=== PATIENT | female | born 1990 | race Caucasian/White ===

== ENCOUNTER 2019-01-19 23:56 | Emergency (ER) | payer OTHER ==
[~2019-01-19] VITALS: Ht 162.6 cm; Wt 50.8 kg
[2019-01-20] MEDS ORDERED: CLONAZEPAM2 MG PO (00:27)
[2019-01-20] MEDS ORDERED: TRILEPTAL300 MG PO (00:28)
[2019-01-20] MEDS ORDERED: ABILIFY 5 MG TAB5 MG PO (00:29)
[2019-01-20 00:36] LABS: ABSOLUTE NEUTROPHILS 3.8 thou/uL (1.4-8.2); BASOPHILS 0.6 % (0.0-2.0); EOSINOPHILS 1.1 % (0.0-3.0); HEMATOCRIT 46.2 % (37.0-47.0); HEMOGLOBIN 15.7 gm/dL (12.0-15.0); LYMPHOCYTES 30.1 % (24.0-44.0); MCH 28.9 pg (26.0-34.0); MCHC 34.1 g/dL (28.0-37.0); MCV 84.9 fL (80.0-100.0); MONOCYTES 10.3 % (1.0-8.0); PLATELET COUNT 199 thou/uL (150-400); POLYS 57.9 % (36.0-66.0); RBC 5.44 mil/uL (4.20-5.00); RDW 14.3 % (10.5-14.5); WBC 6.5 thou/uL (4.0-11.0)
[2019-01-20 00:41] LABS: CREATININE 0.9 mg/dL (0.6-1.0); POTASSIUM 3.2 mmol/L (3.5-5.1)
[2019-01-20 00:47] LABS: ALBUMIN 3.5 g/dL (3.4-5.0); TOTAL BILIRUBIN 0.3 mg/dL (<0.1-1.0); TOTAL PROTEIN 6.1 g/dL (6.4-8.2)
[2019-01-20 01:00] LABS: AMP/METHAMP POSITIVE (Negative); BARBITURATES Negative (Negative); BENZODIAZEPINES POSITIVE (Negative); COCAINE POSITIVE (Negative); METHADONE Negative (Negative); OPIATES Negative (Negative); PCP Negative (Negative)
[2019-01-20 01:01] LABS: URINE BILIRUBIN NEGATIVE (Negative); URINE BLOOD TRACE (Negative); URINE CLARITY SL CLOUDY; URINE COLOR YELLOW; URINE GLUCOSE-RANDOM* NEGATIVE (Negative); URINE KETONES NEGATIVE (Negative); URINE LEUKOCYTES-REFLEX NEGATIVE (Negative); URINE NITRITE-REFLEX NEGATIVE (Negative); URINE PROTEIN (DIPSTICK) TRACE (Negative); URINE UROBILINOGEN 0.2 E.U./dl (0.2-1.0)
[2019-01-20 03:03] VITALS: BP 106/66
--- NOTE | 2019-01-20 07:42 | EKG ---
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 : 1990 Requested By: Wendie Liang Order Number: [id number] MD: Dixon Burgess Measurements Intervals [place] Rate: 63 P: 40 CO: 139 QRS: 41 QRSD: 81 T: 70 QT: 437 QTc: 448 Interpretive Statements Sinus rhythm Atrial premature complex Poor R wave progression No previous ECG available for comparison Electronically Signed On 01-20-2019 7:42:39 CDT by Dixon Burgess [email or web address] ��������������������������������������������� <ELECTRONICALLY SIGNED> ���������������������������������������� By: Dixon Burgess MD, [facility] ��������������������������������������������� 01/20/19 0742 0010 0010 Dixon Burgess MD, FACC /EPI
== END 2019-01-20 03:07 | disposition home or self-care (01) ==
LOC: ER 23:56
PROVIDERS: Student in an Organized Health Care Education/Training Program
DX: I95.1 Orthostatic hypotension (principal); E87.6 Hypokalemia; R55 Syncope and collapse; F17.210 Nicotine dependence, cigarettes, uncomplicated

== ENCOUNTER 2019-12-10 19:39 | Emergency (ER) | payer OTHER ==
[~2019-12-10] VITALS: Ht 162.6 cm; Wt 47.2 kg
[~2019-12-10 19:39] MED LIST: ABILIFY 5 MG TAB5 MG PO; CLONAZEPAM2 MG PO; TRILEPTAL300 MG PO
[2019-12-10] MEDS ORDERED: TRAZODONE HCL100 MG PO (19:46)
[2019-12-10] MEDS ORDERED: KLONOPIN2 MG PO (19:46)
[2019-12-10 20:07] LABS: URINE BILIRUBIN NEGATIVE (Negative); URINE BLOOD NEGATIVE (Negative); URINE CLARITY CLEAR; URINE COLOR YELLOW; URINE GLUCOSE-RANDOM* NEGATIVE (Negative); URINE KETONES NEGATIVE (Negative); URINE NITRITE-REFLEX NEGATIVE (Negative); URINE PROTEIN (DIPSTICK) NEGATIVE (Negative); URINE UROBILINOGEN 0.2 E.U./dl (0.2-1.0)
[2019-12-10 20:10] LABS: URINE LEUKOCYTES-REFLEX 3+ (Negative)
[2019-12-10 20:18] LABS: URINE WBC-REFLEX 6-15 Few /HPF (0-5); YEAST-REFLEX Present (None Seen)
[2019-12-10 20:19] LABS: BACTERIA-REFLEX 1-9 Few /HPF (None Seen); CASTS None Seen /LPF (None Seen); CRYSTALS None Seen /LPF (None Seen); SQUAMOUS 0-3 Few /LPF (0-3); URINE RBC None Seen /HPF (0-2)
[2019-12-10] MEDS ORDERED: DIFLUCAN200 MG PO (21:52)
[2019-12-10 22:32] VITALS: BP 123/76
== END 2019-12-10 22:35 | disposition home or self-care (01) ==
LOC: ER 19:39
PROVIDERS: Physician Assistant
DX: Z32.02 Encounter for pregnancy test, result negative (principal); B37.9 Candidiasis, unspecified; N89.8 Other specified noninflammatory disorders of vagina; F17.210 Nicotine dependence, cigarettes, uncomplicated

== ENCOUNTER 2020-01-21 14:27 | Emergency (ER) | payer OTHER ==
[~2020-01-21] VITALS: Ht 160 cm; Wt 49.9 kg
[~2020-01-21 14:27] MED LIST changes: +DIFLUCAN200 MG PO; +KLONOPIN2 MG PO; +TRAZODONE HCL100 MG PO
[2020-01-21 14:47] VITALS: BP 112/68
[2020-01-21] MEDS ORDERED: ZOFRAN4 MG PO (15:06)
== END 2020-01-21 15:11 | disposition home or self-care (01) ==
LOC: ER 14:27
DX: B34.9 Viral infection, unspecified (principal); R11.2 Nausea with vomiting, unspecified; F17.210 Nicotine dependence, cigarettes, uncomplicated

== ENCOUNTER 2020-02-14 11:50 | Emergency (ER) | payer OTHER ==
[~2020-02-14] VITALS: Ht 162.6 cm; Wt 49.0 kg
[~2020-02-14 11:50] MED LIST changes: +ZOFRAN4 MG PO
[2020-02-14 12:14] LABS: ABSOLUTE NEUTROPHILS 3.1 thou/uL (1.4-8.2); BASOPHILS 0.6 % (0.0-2.0); EOSINOPHILS 0.8 % (0.0-3.0); HEMATOCRIT 44.1 % (37.0-47.0); HEMOGLOBIN 14.8 gm/dL (12.0-15.0); LYMPHOCYTES 28.2 % (24.0-44.0); MCH 29.2 pg (26.0-34.0); MCHC 33.6 g/dL (28.0-37.0); MONOCYTES 7.4 % (1.0-8.0); PLATELET COUNT 225 thou/uL (150-400); RBC 5.06 mil/uL (4.20-5.00); RDW 13.7 % (10.5-14.5); WBC 4.9 thou/uL (4.0-11.0)
[2020-02-14 12:17] LABS: CALCIUM 8.9 mg/dL (8.5-10.1); CREATININE 1.1 mg/dL (0.6-1.0); POTASSIUM 3.1 mmol/L (3.5-5.1)
[2020-02-14 12:23] LABS: MAGNESIUM 2.2 mg/dL (1.8-2.4); TOTAL BILIRUBIN 0.4 mg/dL (<0.1-1.0); TOTAL PROTEIN 7.3 g/dL (6.4-8.2)
[2020-02-14] MEDS ORDERED: POTASSIUM20 PO (13:24)
[2020-02-14] MEDS ORDERED: CLONAZEPAM 0.50.5 M1 PO (13:24)
[2020-02-14 13:37] VITALS: BP 97/59
== END 2020-02-14 13:44 | disposition home or self-care (01) ==
LOC: ER 11:50
PROVIDERS: Physician Assistant
DX: R56.9 Unspecified convulsions (principal); E87.6 Hypokalemia; F41.9 Anxiety disorder, unspecified; F17.210 Nicotine dependence, cigarettes, uncomplicated; Z79.899 Other long term (current) drug therapy

== ENCOUNTER 2020-02-16 10:57 | Emergency (ER) | payer OTHER ==
[~2020-02-16] VITALS: Ht 162.6 cm; Wt 49.0 kg
--- NOTE | ~2020-02-16 | EMS ---
[address] [address] EMS Patient Care Report Name: DALLAS HO Room #: REG TRISTIN Warner#: [id number] Admission: 02/16/20 Attend Phys: Discharge: Date of : [birth year] Report #: [id number] THIS REPORT FOR: //name// Report Transmitted: 02/16/2020 12:26 EMS Care Summary [place], [place]/[facility] Incident [id number] @ 02/16/2020 10:22 Incident Location [address] [place], [place] [id number] Patient DALLAS OH Female, 29 Years 1990 Patient Address [address] [place], [place] [id number] Patient History Other,Seizures, Patient Allergies No known allergies, Patient Medications Clonazepam, Trazodone, Chief Complaint REPEATED SEIZURES Disposition Transported No Lights/[place] Dispatch Reason Convulsions/Seizure Transported To [facility] Narrative REC'D CALL FOR SEIZURES. DISP ADVISED POTENTIAL JUWAN PT BASED ON POSSIBLE FEVER. ON ARRIVAL, MAN MET US OUTSIDE STATING PT HAD SEVER[place] [address] EMS Patient Care Report Name: DALLAS OH Room #: REG Timmy#: [id number] Admission: 02/16/20 Attend Phys: Discharge: Date of : [birth year] Report #: [id number] PAST 12 HOURS OR SO, WHICH IS MUCH MORE FREQUENT THAN USUAL. THE MAN STATED HE WOULD CARRY PT OUT TO US BECAUSE THE STAIRS TO APT WERE DIFFICULT TO NAVIGATE WITH THE COT. MALE CARRIED PT STATED, AND PLACED HER ON OUR COT AT THE TOP OF THE STAIRS. PT WAS LOADED INTO AMB QUICKLY, SEVERE WEATHER WAS APPROACHING. PT WAS WARM TO THE TOUCH, SURGICAL MASK PLACED ON PT. PT STATED THAT SHE HAD BEEN RECENTLY TESTED FOR COVID WITH NEGATIVE RESULTS. CREW DONNED PPE PER PROTOCOL PRIOR TO CONTACT. PT ASSESSMENT FOUND PT GCS 15, BUT WITH LITTLE TO NO RECOLLECTION OF SEIZURE ACTIVITY. 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 PT DENIES ANY SCRIPTS GIVEN FOR SEIZURE ACTIVITY. IV ESTABLISHED, SALINE LOCKED. PT REQUESTED TRANSPORT TO [facility]. PT WAS MONITORED CONTINUOUSLY DURING TRANSPORT, PT REMAINED STABLE. PT CARE PASSED TO [facility]. Initial Vitals @10:33P: 55,R: 16,BP: 93/52,Pain: 0/10,GCS: 15,Glucose: 107,SpO2: 98,Revised Trauma: 12, @10:37P: 70,R: 14,BP: 95/58,Pain: 0/10,GCS: 15,SpO2: 99,Revised Trauma: 12, Assessments @10:34MENTAL:No Abnormalities,SKIN:HEENT:Head/Face: No Abnormalities,Neck/Airway: No Abnormalities,LUNG SOUNDS:General: No Abnormalities,ABDOMEN:General: No Abnormalities,PELVIS//GI:EXTREMITIES:Capillary Refill: Left Upper: 3 Sec,Left Arm: No Abnormalities,Right Arm: No Abnormalities,Left Leg: No Abnormalities,Right Leg: No Abnormalities,PULSE:Radial: 2+ Normal,NEURO:No Abnormalities,@10:50MENTAL:No Abnormalities,SKIN:No Abnormalities,HEENT:Head/Face: No Abnormalities,Eyes: No Abnormalities,Neck/Airway: No Abnormalities,LUNG SOUNDS:General: No Abnormalities,ABDOMEN:General: No Abnormalities,PELVIS//GI:EXTREMITIES:Capillary Refill: Left Upper: 3 Sec,Left Arm: No Abnormalities,Right Arm: No Abnormalities,Left Leg: No Abnormalities,Right Leg: No Abnormalities,PULSE:Radial: 2+ Normal,NEURO:No Abnormalities, Impression Seizures Procedures @10:41Normal Saline (.9% NaCl) 10cc (20 ga) Site: Forearm-LeftResponse: UnchangedSucceeded@10:33ALS AssessmentResponse: UnchangedSucceeded@10:35StretcherResponse: Unchanged Timeline 10:19,Call Received 10:19,[place] [address] EMS Patient Care Report Name: DALLAS OH Room #: REG [facility].#: [id number] Admission: 02/16/20 Attend Phys: Discharge: Date of : [birth year] Report #: [id number] 10:22,Dispatched 10:24,En Route 10:27,On Scene 10:31,At Patient 10:33,BP: 93/52 M,PULSE: 55,RR: 16 R,SPO2: 98 Ox,ETCO2: ,B,PAIN: 0,GCS: 15, 10:33,ALS Assessment,Response: UnchangedSucceeded, 10:35,Stretcher,Response: Unchanged 10:37,BP: 95/58 M,PULSE: 70,RR: 14 R,SPO2: 99 Ox,ETCO2: ,BG: ,PAIN: 0,GCS: 15, 10:41,Normal Saline (.9% NaCl) 10cc 20 ga Site: Forearm-Left,Response: UnchangedSucceeded, 10:42,Depart Scene 10:50,At Destination 11:02,Call Closed Disclaimer v1.1 Copyright 2020 [employer] This EMS Care Summary contains data elements from the applicable legal record (which may be displayed differently). It is designed to provide pertinent information for the following purposes: continuity of care, clinical quality, and state data reporting. The complete legal record is available to ED staff and administrators of the receiving hospital in ES's Patient Tracker. All data is provided "as is."
[~2020-02-16 10:57] MED LIST changes: +CLONAZEPAM 0.50.5 M1 PO; +POTASSIUM20 PO
[2020-02-16 11:27] LABS: ABSOLUTE NEUTROPHILS 2.3 thou/uL (1.4-8.2); BASOPHILS 0.9 % (0.0-2.0); HEMATOCRIT 39.1 % (37.0-47.0); HEMOGLOBIN 13.6 gm/dL (12.0-15.0); LYMPHOCYTES 37.4 % (24.0-44.0); MCH 30.1 pg (26.0-34.0); MCHC 34.8 g/dL (28.0-37.0); MCV 86.4 fL (80.0-100.0); MONOCYTES 8.3 % (1.0-8.0); PLATELET COUNT 201 thou/uL (150-400); POLYS 51.4 % (36.0-66.0); RBC 4.53 mil/uL (4.20-5.00); RDW 13.3 % (10.5-14.5); WBC 4.5 thou/uL (4.0-11.0)
[2020-02-16 11:32] LABS: CREATININE 0.8 mg/dL (0.6-1.0)
[2020-02-16 11:38] LABS: ALBUMIN 3.2 g/dL (3.4-5.0); TOTAL BILIRUBIN 0.3 mg/dL (<0.1-1.0); TOTAL PROTEIN 6.1 g/dL (6.4-8.2)
[2020-02-16 11:53] LABS: URINE BILIRUBIN NEGATIVE (Negative); URINE BLOOD NEGATIVE (Negative); URINE CLARITY CLEAR; URINE COLOR YELLOW; URINE GLUCOSE-RANDOM* NEGATIVE (Negative); URINE KETONES NEGATIVE (Negative); URINE LEUKOCYTES-REFLEX NEGATIVE (Negative); URINE PROTEIN (DIPSTICK) NEGATIVE (Negative); URINE SPECIFIC GRAVITY >= 1.030 (1.005-1.035); URINE UROBILINOGEN 0.2 E.U./dl (0.2-1.0)
[2020-02-16 12:14] LABS: URINE NITRITE-REFLEX POSITIVE (Negative)
[2020-02-16 13:25] LABS: CASTS None Seen /LPF (None Seen); SQUAMOUS >10 Many /LPF (0-3); URINE RBC None Seen /HPF (0-2); URINE WBC-REFLEX 0-5 Rare /HPF (0-5)
[2020-02-16 13:26] LABS: CRYSTALS None Seen /LPF (None Seen)
[2020-02-16] MEDS ORDERED: EFFEXOR XR37.5 MG PO (13:39)
[2020-02-16] MEDS ORDERED: KEFLEX500 M1 PO (13:39)
[2020-02-16] MEDS ORDERED: KLONOPIN1 MG PO (13:39)
[2020-02-16 13:42] VITALS: BP 96/31
--- NOTE | 2020-02-17 07:58 | EKG ---
[facility] [place] [address] ELECTROCARDIOGRAM REPORT Name: DALLAS OH Room #: DEP [facility]#: [id number] Admission: 02/16/20 Attend Phys: Discharge: 02/16/20 Date of : [birth year] Report #: [id number] THIS REPORT FOR: cc: Elan Dudley MD, Bryan W. MD Lundgren, Craig H. MD [facility] ~ THIS REPORT FOR: //name// [facility] ED Test Date: 2020-02-16 Test Time: 11:05:24 Pat Name: DALLAS OH Department: Room: Gender: Veneer Department Manager: [facility] : 1990 Requested By: David Singh Order Number: [id number] MD: Dixon Burgess Measurements Intervals [place] Rate: 50 P: 27 WI: 149 QRS: 74 QRSD: 85 T: 76 QT: 455 QTc: 415 Interpretive Statements Sinus rhythm ST elev, probable normal early repol pattern No previous ECGs available for comparison Electronically Signed On 02-17-2020 7:56:58 CDT by Dixon Burgess [email or web address] <ELECTRONICALLY SIGNED> By: Dixon Burgess MD, FAC 02/17/20 0756 1105 04 Dixon Burgess MD, [facility] /EPI
[2020-02-17] MEDS ORDERED: KLONOPIN1 MG PO (19:22)
== END 2020-02-16 13:46 | disposition home or self-care (01) ==
LOC: ER 10:57
PROVIDERS: Emergency Medicine
DX: R25.1 Tremor, unspecified (principal); N39.0 Urinary tract infection, site not specified; G43.909 Migraine, unspecified, not intractable, without status migrainosus; M62.838 Other muscle spasm; M54.2 Cervicalgia; F31.9 Bipolar disorder, unspecified; F41.9 Anxiety disorder, unspecified; F17.210 Nicotine dependence, cigarettes, uncomplicated; Z79.899 Other long term (current) drug therapy

== ENCOUNTER 2020-02-17 18:21 | Emergency (ER) | payer OTHER ==
[~2020-02-17] VITALS: Ht 162.6 cm; Wt 49.0 kg
[~2020-02-17 18:21] MED LIST changes: +EFFEXOR XR37.5 MG PO; +KEFLEX500 M1 PO; +KLONOPIN1 MG PO
[2020-02-17] MEDS ORDERED: KLONOPIN1 MG PO (19:22)
[2020-02-17 19:25] VITALS: BP 103/59
[2020-02-18] MEDS ORDERED: BUSPAR30 MG PO (10:48)
== END 2020-02-17 19:30 | disposition home or self-care (01) ==
LOC: ER 18:21
DX: R56.9 Unspecified convulsions (principal); R41.0 Disorientation, unspecified; R53.83 Other fatigue; R53.1 Weakness; F17.210 Nicotine dependence, cigarettes, uncomplicated; Z79.899 Other long term (current) drug therapy; Z79.2 Long term (current) use of antibiotics

== ENCOUNTER 2020-02-18 09:42 | Emergency (ER) | payer OTHER ==
[~2020-02-18] VITALS: Ht 162.6 cm; Wt 49.0 kg
[2020-02-18 10:16] LABS: ABSOLUTE NEUTROPHILS 2.1 thou/uL (1.4-8.2); BASOPHILS 0.5 % (0.0-2.0); EOSINOPHILS 1.9 % (0.0-3.0); HEMATOCRIT 39.3 % (37.0-47.0); HEMOGLOBIN 13.2 gm/dL (12.0-15.0); LYMPHOCYTES 37.1 % (24.0-44.0); MCH 29.7 pg (26.0-34.0); MCHC 33.7 g/dL (28.0-37.0); MCV 88.1 fL (80.0-100.0); PLATELET COUNT 209 thou/uL (150-400); POLYS 51.5 % (36.0-66.0); RBC 4.46 mil/uL (4.20-5.00); RDW 13.7 % (10.5-14.5)
[2020-02-18 10:25] LABS: CALCIUM 8.3 mg/dL (8.5-10.1); CREATININE 0.8 mg/dL (0.6-1.0); POTASSIUM 4.1 mmol/L (3.5-5.1)
[2020-02-18 10:31] LABS: ALBUMIN 3.3 g/dL (3.4-5.0); TOTAL BILIRUBIN 0.4 mg/dL (<0.1-1.0); TOTAL PROTEIN 6.2 g/dL (6.4-8.2)
[2020-02-18] MEDS ORDERED: BUSPAR30 MG PO (10:48)
[2020-02-18 11:00] VITALS: BP 95/92
== END 2020-02-18 11:20 | disposition home or self-care (01) ==
LOC: ER 09:42
PROVIDERS: Emergency Medicine
DX: R56.9 Unspecified convulsions (principal); F17.210 Nicotine dependence, cigarettes, uncomplicated

== ENCOUNTER 2020-04-01 22:23 | Emergency (ER) | payer OTHER ==
[~2020-04-01] VITALS: Ht 160 cm; Wt 46.3 kg
[~2020-04-01 22:23] MED LIST changes: +BUSPAR30 MG PO
[2020-04-01] MEDS ORDERED: DEPAKOTE250 MG PO (22:46)
[2020-04-01 23:14] LABS: ABSOLUTE NEUTROPHILS 1.9 thou/uL (1.4-8.2); BASOPHILS 0.6 % (0.0-2.0); EOSINOPHILS 1.3 % (0.0-3.0); HEMATOCRIT 36.9 % (37.0-47.0); HEMOGLOBIN 12.8 gm/dL (12.0-15.0); LYMPHOCYTES 37.1 % (24.0-44.0); MCHC 34.7 g/dL (28.0-37.0); MCV 86.4 fL (80.0-100.0); MONOCYTES 9.5 % (1.0-8.0); PLATELET COUNT 181 thou/uL (150-400); POLYS 51.5 % (36.0-66.0); RBC 4.27 mil/uL (4.20-5.00); RDW 13.9 % (10.5-14.5); WBC 3.8 thou/uL (4.0-11.0)
[2020-04-01 23:27] LABS: ALBUMIN 3.5 g/dL (3.4-5.0); CALCIUM 8.5 mg/dL (8.5-10.1); CREATININE 0.8 mg/dL (0.6-1.0); TOTAL BILIRUBIN 0.4 mg/dL (0.2-1.0); TOTAL PROTEIN 6.2 g/dL (6.4-8.2)
[2020-04-01 23:33] LABS: POTASSIUM 2.4 mmol/L (3.5-5.1)
[2020-04-02 00:42] VITALS: BP 97/51
--- NOTE | 2020-04-03 11:46 | EKG ---
[facility] [place] [address] ELECTROCARDIOGRAM REPORT Name: DALLAS OH Elvira Room #: DEP 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
== END 2020-04-02 00:45 | disposition left against medical advice (07) ==
LOC: ER 22:23
PROVIDERS: Emergency Medicine
DX: E87.6 Hypokalemia (principal); R11.10 Vomiting, unspecified; F17.210 Nicotine dependence, cigarettes, uncomplicated; M50.30 Other cervical disc degeneration, unspecified cervical region; F12.90 Cannabis use, unspecified, uncomplicated; Z79.899 Other long term (current) drug therapy

== ENCOUNTER 2020-11-23 15:57 | Emergency (ER) | payer OTHER ==
[~2020-11-23] VITALS: Ht 160 cm; Wt 49.0 kg
[~2020-11-23 15:57] MED LIST changes: +DEPAKOTE250 MG PO
[2020-11-23 18:13] LABS: BASOPHILS 0.4 % (0.0-2.0); EOSINOPHILS 0.9 % (0.0-3.0); LYMPHOCYTES 29.2 % (24.0-44.0); MCH 29.3 pg (26.0-34.0); MCHC 33.4 g/dL (28.0-37.0); MCV 87.5 fL (80.0-100.0); MONOCYTES 9.1 % (1.0-8.0); PLATELET COUNT 263 thou/uL (150-400); POLYS 60.4 % (36.0-66.0); RDW 13.1 % (10.5-14.5); WBC 6.5 thou/uL (4.0-11.0)
[2020-11-23 18:31] LABS: URINE BILIRUBIN NEGATIVE (Negative); URINE BLOOD NEGATIVE (Negative); URINE CLARITY CLEAR; URINE COLOR YELLOW; URINE GLUCOSE-RANDOM* NEGATIVE (Negative); URINE KETONES NEGATIVE (Negative); URINE LEUKOCYTES-REFLEX TRACE (Negative); URINE NITRITE-REFLEX NEGATIVE (Negative); URINE PROTEIN (DIPSTICK) TRACE (Negative); URINE SPECIFIC GRAVITY 1.025 (1.005-1.035); URINE UROBILINOGEN 0.2 E.U./dl (0.2-1.0)
[2020-11-23 18:46] LABS: AMP/METHAMP POSITIVE (Negative); BARBITURATES Negative (Negative); BENZODIAZEPINES POSITIVE (Negative); COCAINE Negative (Negative); METHADONE Negative (Negative); OPIATES Negative (Negative); PCP Negative (Negative)
[2020-11-23 19:04] LABS: CREATININE 0.9 mg/dL (0.6-1.0); POTASSIUM 3.6 mmol/L (3.5-5.1)
[2020-11-23 19:10] LABS: ALBUMIN 3.9 g/dL (3.4-5.0); TOTAL BILIRUBIN 0.2 mg/dL (0.2-1.0)
[2020-11-23] MEDS ORDERED: ATIVAN0.5 M1 PO (20:02)
[2020-11-23 20:24] VITALS: BP 108/63
--- NOTE | 2020-11-24 07:21 | EKG ---
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 : 1990 Requested By: Neo Henderson Order Number: [id number] MD: Felix Craig Measurements Intervals [place] Rate: 124 P: 74 [place]: 147 QRS: 94 QRSD: 90 T: -10 QT: 312 QTc: 448 Interpretive Statements Sinus tachycardia LAE, consider biatrial enlargement Borderline right axis deviation Borderline T abnormalities, inferior leads Baseline wander in lead(s) I,II,aVR,aVF,V2,V3 Compared to ECG 04/01/2020 23:43:25 Sinus rhythm no longer present Atrial premature complex(es) no longer present T-wave abnormality still present Electronically Signed On 11-24-2020 7:21:20 [employer] by Felix Craig [email or web address] <ELECTRONICALLY SIGNED> By: Felix Craig MD, [facility] 11/24/20 0721 1610 1610 Felix Craig MD, [facility] /EPI
== END 2020-11-23 20:24 | disposition home or self-care (01) ==
LOC: ER 15:57
PROVIDERS: Physician Assistant
DX: R55 Syncope and collapse (principal); F41.9 Anxiety disorder, unspecified; R56.9 Unspecified convulsions; F17.210 Nicotine dependence, cigarettes, uncomplicated; Z79.899 Other long term (current) drug therapy

== ENCOUNTER 2021-06-15 13:29 | Emergency (ER) | payer OTHER ==
[~2021-06-15] VITALS: Ht 160 cm; Wt 49.0 kg
[~2021-06-15 13:29] MED LIST changes: +ATIVAN0.5 M1 PO
[2021-06-15] MEDS ORDERED: DOXYCYCLINE 10100 MG PO (14:17)
[2021-06-15 14:30] VITALS: BP 142/66
== END 2021-06-15 14:30 | disposition home or self-care (01) ==
LOC: ER 13:29
DX: L03.114 Cellulitis of left upper limb (principal); F31.9 Bipolar disorder, unspecified; F17.210 Nicotine dependence, cigarettes, uncomplicated; F12.90 Cannabis use, unspecified, uncomplicated; Z79.899 Other long term (current) drug therapy